=== PATIENT | female | born 1990 | race African-American/Black ===

== ENCOUNTER 2018-11-16 16:47 | Emergency (ER) | payer OTHER ==
[~2018-11-16] VITALS: Ht 162.6 cm; Wt 77.1 kg
[2018-11-16] MEDS ORDERED: NKM (17:18)
--- NOTE | 2018-11-16 17:18 | NUR ---
ED Nurse Note: AMBULATED IN TO ER DUE TO ABSCESS ON THE POSTERIOR RIGHT LOWER NECK X 4 DAYS. DENIES FEVER AND CHILLS.
[2018-11-16 17:20] VITALS: BP 125/85
--- NOTE | 2018-11-16 18:21 | NUR ---
ED Nurse Note: PA at the bedside for I&D
[2018-11-16] MEDS: Lidocaine 1% MPF 10mg/ml 5ml INJ ONE (18:35)
[2018-11-16] MEDS ORDERED: NAPROXEN500 M1 ORAL (18:44)
[2018-11-16] MEDS ORDERED: CLINDAMYCIN HC300 MG ORAL (18:44)
--- NOTE | 2018-11-16 18:45 | Emergency Room Report ---
History of Present Illness General Chief Complaint: Skin Rash/Abscess Source: Patient Present Illness HPI 27-year-old male presents with abscess to the right side of her neck for 4 days. States that she was having a hair bump. States that it has become more large and she feels a lot of pressure on the right side of her neck. She denies any fever, neck stiffness, headache, blurred vision, photophobia, nausea , or vomiting. Allergies: Coded Allergies: No Known Allergies (Unverified , 11/16/18) Patient History Past Medical History: see triage record Past Surgical History: none Pertinent Family History: none Last Menstrual Period: 10/20/2018 Immunizations: UTD Reviewed Nursing Documentation: PMH: Agreed; PSxH: Agreed Nursing Documentation-PMH Past Medical History: No Stated History Review of Systems All Other Systems: negative except mentioned in HPI Physical Exam Vital Signs Date Time Temp Pulse Resp B/P (MAP) Pulse Ox O2 Delivery O2 Flow Rate FiO2 11/16/18 17:13 98.4 84 14 125/85 97 Room Air Sp02 EP Interpretation: reviewed, normal General Appearance: no apparent distress, alert, GCS 15, non-toxic Head: normocephalic, atraumatic Eyes: bilateral eye normal inspection, bilateral eye PERRL ENT: hearing grossly normal, normal pharynx, no angioedema, normal voice Neck: full range of motion, no meningismus, no bony tend, supple/symm/no masses , tender lateral, other - right pericervical indurated flutulent mass consistent with abscess Respiratory: chest non-tender, lungs clear, normal breath sounds, speaking full sentences Cardiovascular #1: regular rate, rhythm, no edema Musculoskeletal: gait/station normal Neurologic: alert, oriented x3, responsive, motor strength/tone normal, sensory intact, speech normal Psychiatric: judgement/insight normal, memory normal, mood/affect normal, no suicidal/homicidal ideation Skin: normal color, no rash, warm/dry, well hydrated Procedures Incision and Drainage Incision and Drainage : Blade Size: 11 I & D Procedure: betadine prep Wound Location: head Wound's Depth, Shape: superficial, linear Wound Length (cm): 1 Wound Explored: clean Anesthesia: 1% Lidocaine Volume Anesthetic (ccs): 3 Patient Tolerated: Well Complications: None Progress approx 2cc of purulent fluid drained. Wound packed with 1/4 iodoform gauze. Medical Decision Making PA Attestation Dr. Marie is my supervising physician with whom patient management has been discussed with. Diagnostic Impression: Primary Impression: Abscess ER Course Pt. presents to the ED c/o bump on the right side of her neck Ddx considered but are not limited to sebaceous cyst, cellulitis, abscess, tumor , hematoma, lymphangitis Vital signs: are WNL, pt. is afebrile H&PE are most consistent with abscess ORDERS: none required at this time, the diagnosis is clinical ED INTERVENTIONS: I&D, Rocephin 1 g DISCHARGE: At this time pt. is stable for d/c to home. Will provide printed patient care instructions, and any necessary prescriptions. Care plan and follow up instructions have been discussed with the patient prior to discharge. Last Vital Signs Date Time Temp Pulse Resp B/P (MAP) Pulse Ox O2 Delivery O2 Flow Rate FiO2 11/16/18 17:20 98.4 82 14 125/85 97 Room Air Status: improved Disposition: HOME, SELF-CARE Condition: Improved Scripts Naproxen* (NAPROXEN*) 500 Mg Tablet.dr 500 MG ORAL TWICE A DAY for 10 Days, #20 TAB Prov: Prashant Chinchilla 11/16/18 Clindamycin Hcl (CLINDAMYCIN HCL) 300 Mg Capsule 300 MG ORAL TID for 10 Days, #30 CAP Prov: Prashant Chinchilla 11/16/18 Patient Instructions: Abscess Additional Instructions: Take medication as directed. Patient instructed to take ibuprofen and tylenol as needed for pain. Patient to return for wound check in 2-3 days either here, urgent care or with PCP. A Patient is to keep the infected area clean and dry. They can take a shower or bath, but be sure to pat the area dry with a towel afterward. Patient instructed to not put any antibiotic ointments or creams on the area. Patient should come back sooner if their symptoms do not get better within 3 days of starting treatment or if the red area gets bigger, more swollen , or more painful. Prashant Chinchilla Nov 16, 2018 18:45
[2018-11-16 18:59] VITALS: BP 125/85
--- NOTE | 2018-11-16 18:59 | NUR ---
ED Nurse Note: Dry dressing applied as PA's verbal order. Pt cleared by health care Provider for discharge. DC instructions/prescription was given and explained to pt and verbalized understanding of teachings. All medical deviecs such as ID band removed. Pt is AAO x4, ambulatory and left with all personal belongings. Pt left ER with steady gait. Per pt, her mom is picking up her right now.
== END 2018-11-16 19:00 | disposition home or self-care (01) ==
LOC: EMR 17:48
DX: L02.11 Cutaneous abscess of neck (principal)
CPT/HCPCS: 10060; 96372; 99283; J0696

== ENCOUNTER 2018-11-20 22:19 | Emergency (ER) | payer OTHER ==
[~2018-11-20] VITALS: Ht 162.6 cm; Wt 77.1 kg
[~2018-11-20 22:19] MED LIST: CLINDAMYCIN HC300 MG ORAL; NAPROXEN500 M1 ORAL; NKM
--- NOTE | 2018-11-20 22:31 | NUR ---
ED Nurse Note: Pt arrived ED from home, c/o follow up with her abscess on her back of her neck. Pt is A/OX 4. VSS. Waiting for orders.
--- NOTE | 2018-11-20 22:35 | Emergency Room Report ---
History of Present Illness General Chief Complaint: Wound Recheck/Suture Removal Source: Patient Present Illness HPI Is a 27-year-old female with no past medical history. She is here for chief complaint of wound check. She has an abscess to her right neck area that was I and D few days ago. She is on antibiotics per she says doing well. Told to come back for recheck. No other complaint. Allergies: Coded Allergies: No Known Allergies (Unverified , 11/16/18) Patient History Past Medical History: see triage record, old chart reviewed Past Surgical History: none Pertinent Family History: none Social History: Denies: smoking Last Menstrual Period: 11/16/2018 Now: No Immunizations: other Reviewed Nursing Documentation: PMH: Agreed; PSxH: Agreed Nursing Documentation-PMH Past Medical History: No Stated History Review of Systems Eye: Denies: eye pain, blurred vision ENT: Denies: ear pain, nose congestion, throat swelling Respiratory: Denies: cough, shortness of breath Cardiovascular: Denies: chest pain, palpitations Gastrointestinal: Denies: abdominal pain, diarrhea, nausea, vomiting Musculoskeletal: Denies: back pain, joint pain Skin: Denies: rash Neurological: Denies: headache, numbness Endocrine: Denies: increased thirst, increased urine Hematologic/Lymphatic: Denies: easy bruising All Other Systems: negative except mentioned in HPI Physical Exam Vital Signs Date Time Temp Pulse Resp B/P (MAP) Pulse Ox O2 Delivery O2 Flow Rate FiO2 11/20/18 22:26 98.4 75 16 119/73 99 Room Air vitals normal Sp02 EP Interpretation: reviewed, normal General Appearance: well appearing, no apparent distress, alert Head: normocephalic, atraumatic Eyes: bilateral eye PERRL, bilateral eye EOMI ENT: hearing grossly normal, normal pharynx Neck: full range of motion, supple, no meningismus, other - Right neck posteriorly: She has an indurated area of about 2 cm. Minimal serous drainage. No redness. No pain. Respiratory: chest non-tender, lungs clear, normal breath sounds Cardiovascular #1: regular rate, rhythm, no murmur Gastrointestinal: normal bowel sounds, non tender, no mass, no organomegaly, no bruit, non-distended Musculoskeletal: back normal, gait/station normal, normal range of motion Psychiatric: mood/affect normal Skin: warm/dry Medical Decision Making Diagnostic Impression: Primary Impression: Encounter for wound re-check ER Course Patient here for wound recheck from abscess that was I and D. Healing well. We 'll discharge home with reassurance. Last Vital Signs Date Time Temp Pulse Resp B/P (MAP) Pulse Ox O2 Delivery O2 Flow Rate FiO2 11/20/18 22:26 98.4 75 16 119/73 99 Room Air Status: unchanged Disposition: HOME, SELF-CARE Condition: Stable Patient Instructions: Wound Check Additional Instructions: Continue with your antibiotics. Clean area with hydrogen peroxide and then antibiotic ointment. Follow-up with your doctor in 7 days as needed. Return if worse. Jose Flowers MD Nov 20, 2018 22:35
--- NOTE | 2018-11-20 22:43 | NUR ---
ER DISCHARGE NOTE: Patient is cleared to be discharged per Dr. Flowers. Pt is aox4 on room air with stable vital signs. Pt was given dc and prescription instructions and was able to verbalize understanding. Pt's ID band removed. pt is able to ambulate with steady gait and took all belongings.
[2018-11-20 23:08] VITALS: BP 114/71
== END 2018-11-20 22:55 | disposition home or self-care (01) ==
LOC: EMR 22:50
DX: L02.11 Cutaneous abscess of neck (principal)
CPT/HCPCS: 99281

== ENCOUNTER 2019-01-08 23:47 | Emergency (ER) | payer OTHER ==
[~2019-01-08] VITALS: Ht 162.6 cm; Wt 77.1 kg
[2019-01-08] MEDS ORDERED: NKM (23:59)
[2019-01-09 00:06] VITALS: BP 122/74
[2019-01-09] MEDS ORDERED: CEPHALEXIN500 MG ORAL (00:29)
[2019-01-09 00:37] VITALS: BP 122/74
--- NOTE | 2019-01-10 04:41 | Emergency Room Report ---
History of Present Illness General Chief Complaint: Skin Rash/Abscess Source: Patient Present Illness HPI Patient is a 28-year-old female who presented after increased skin rash to the left side of her neck for approximately 2 days. Patient denies any fever. She reports having increased discomfort to the area. Patient had previous history of skin abscesses in the past. She denies any severe pain to the area. She is noticed some increased discomfort. She denied any recent trauma. Allergies: Coded Allergies: No Known Allergies (Unverified , 11/16/18) Patient History Past Medical History: see triage record Last Menstrual Period: 11/08/18 Now: No : 6 Para: 3 Reviewed Nursing Documentation: PMH: Agreed; PSxH: Agreed Nursing Documentation-PMH Past Medical History: No Stated History Review of Systems All Other Systems: negative except mentioned in HPI Physical Exam Vital Signs Date Time Temp Pulse Resp B/P (MAP) Pulse Ox O2 Delivery O2 Flow Rate FiO2 01/08/19 23:56 98.1 75 18 119/74 (89) 99 Room Air General Appearance: well appearing, no apparent distress, alert, GCS 15 Head: normocephalic, atraumatic ENT: hearing grossly normal, normal voice Neck: full range of motion, supple, other - small non fluctuant area to left posterior neck. Respiratory: no respiratory distress, speaking full sentences Musculoskeletal: no calf tenderness Neurologic: normal gait Psychiatric: mood/affect normal Skin: no rash Medical Decision Making Diagnostic Impression: Primary Impression: Folliculitis ER Course . Patient presented for skin rash. Differential diagnosis include was not limited to folliculitis, abscess, lymph node among others. Patient has a benign exam and does not appear to require any further imaging or laboratory testing at this time . patient's area of concern was approximately half centimeter. There is no erythema or fluctuance. Patient was advised to have the wound rechecked in the next 2 days. She was given prescription for oral antibiotics. Last Vital Signs Date Time Temp Pulse Resp B/P (MAP) Pulse Ox O2 Delivery O2 Flow Rate FiO2 01/09/19 00:37 98.1 76 18 122/74 100 Room Air Status: improved Disposition: HOME, SELF-CARE Condition: Stable Scripts Cephalexin* (KEFLEX*) 500 Mg Capsule 500 MG ORAL EVERY 6 HOURS, #28 CAP Prov: Rubin Rangel MD 01/09/19 Referrals: [facility],REFERRING (PCP) Patient Instructions: FolliculRubin Castorena MD Jan 10, 2019 04:41
== END 2019-01-09 00:40 | disposition home or self-care (01) ==
LOC: EMR 01-09 00:24
DX: L73.9 Follicular disorder, unspecified (principal)
CPT/HCPCS: 99282